=== PATIENT | female | born 1995 | race Caucasian/White ===

== ENCOUNTER 2024-12-24 11:27 | Outpatient (CLI) | payer BC, SELFPAY ==
--- NOTE | 2024-12-24 11:30 | CRLHL7_ITS ---
For Patients: As a result of the Century Cures Act, medical imaging exams and procedure reports are released immediately into your electronic medical record. You may view this report before your referring provider. If you have questions, please contact your health care provider. OB ULTRASOUND LESS THAN 14 WEEKS, 12/24/2024 CLINICAL HISTORY: Dating and viability. COMPARISON: None. TECHNIQUE: Grayscale and color Doppler ultrasound of the uterus and ovaries from a transvaginal approach. Transvaginal ultrasound of the pelvis was performed to better evaluate the genitourinary organs such as the ovaries and/or endometrium. FINDINGS: Imaging: TV. LMP: 10/15/2024. JONI by LMP: 08/01/2025. GA: 8 weeks 4 days. FHR: 178 bpm. GEST SAC: Appears WNL. YOLK SAC: Appears WNL. RIGHT OV: 4.4 x 3.4 x 4.1 cm. CL. LEFT OV: Not visualized. IMPRESSION: 1. Single living intrauterine measures 9 weeks 1 day with sonographic due date 07/28/2025. 2. Simple right ovarian cyst measures 3.9 x 3.0 x 3.6 cm. 3. Subchorionic hemorrhage measures 3.8 x 2.0 x 3.6 cm. Carlos Quevedo M.D. Diagnostic Radiologist [email or web address] Transcribed: 12:39 pm DW/Dictated by: Carlos Quevedo MD @ 12/24/2024 12:19:00 PM (Electronically Signed)
== END 2024-12-24 11:28 | disposition home or self-care (01) ==
LOC: US 11:29
PROVIDERS: PCP Family Medicine; Visit Provider Registered Nurse
DX: O20.9 Hemorrhage in early pregnancy, unspecified (principal); O34.81 Maternal care for other abnormalities of pelvic organs, first trimester; N83.291 Other ovarian cyst, right side; Z3A.09 9 weeks gestation of pregnancy
CPT/HCPCS: 76817; 82565; 82570; 83021; 84156; 84450; 84460; 84520; 86703; 86706; 86803; 86850; 86900; 86901; 87086; 87340; 87491; 87591

== ENCOUNTER 2024-12-24 12:56 | Outpatient (CLI) | payer BC, SELFPAY ==
[2024-12-24 20:50] LABS: Chlamydia DNA Amplified* NOT DETECTED (No Detected); GC DNA Amplified* NOT DETECTED (No Detected)
== END 2024-12-24 12:57 | disposition home or self-care (01) ==
PROVIDERS: PCP Family Medicine; Visit Provider Registered Nurse
DX: Z34.91 Encounter for supervision of normal pregnancy, unspecified, first trimester (principal)
CPT/HCPCS: 82565; 82570; 83020; 83021; 84156; 84450; 84460; 84520; 85660; 86592; 86703; 86704; 86706; 86762; 86787; 86803; 86850; 86900; 86901; 87086; 87340; 87491; 87591

== ENCOUNTER 2025-01-08 11:53 | Outpatient (CLI) | payer BC, SELFPAY | END 2025-01-08 11:54 | disposition home or self-care (01) | LOC: NFLDREF 11:55 | PROVIDERS: PCP Family Medicine; Visit Provider Advanced Practice Midwife | DX: O20.9 Hemorrhage in early pregnancy, unspecified (principal); O26.891 Other specified pregnancy related conditions, first trimester; Z67.91 Unspecified blood type, Rh negative | CPT/HCPCS: J2791 ==

== ENCOUNTER 2025-01-20 08:33 | Outpatient (CLI) | payer BC, SELFPAY | END 2025-01-20 08:34 | disposition home or self-care (01) | LOC: NFLDREF 01-22 14:46 | PROVIDERS: PCP Family Medicine; Referring Provider Family Medicine; Visit Provider Registered Nurse | DX: Z87.59 Personal history of other complications of pregnancy, childbirth and the puerperium (principal) | CPT/HCPCS: 82570; 84156 ==

== ENCOUNTER 2025-03-17 13:08 | Outpatient (CLI) | payer BC, SELFPAY ==
--- NOTE | 2025-03-17 13:00 | CRLHL7_ITS ---
For Patients: As a result of the 21st Century Cures Act, medical imaging exams and procedure reports are released immediately into your electronic medical record. You may view this report before your referring provider. If you have questions, please contact your health care provider. LMP: 10/25/2024. JONI by LMP: 08/01/2025. GA: 20w, 3d. INDICATION: Supervision of normal . anatomy scan. CERVIX: Visualized. Measurement: 4.8. POSITIONING: Vertex. AMNIOTIC FLUID: 5.2 cm SDP. PLACENTA: Technique: Transabdominal. PLACENTA POSITION: Left wall, posterior. Placenta tip to internal os: 10.9 cm. UMBILICAL CORD: 3-vessel cord. Placental insertion: Eccentric. BIOMETRY: BPD: 5.1 cm. 21w, 3d, 84 percent. HC: 19.3 cm. 21w, 4d, 87 percent. AC: 16.7 cm. 21w, 5d, 84 percent. FL: 3.6 cm. 21w, 2d, 73 percent. FL/AC ratio: 21.40 percent. HC/AC ratio: 1.115. EFW: 432.59 g. Weight: 0 lbs, 15 oz. age by this US: 21w, 4d. JONI by this US: 07/24/2025. Percentile by JONI: 95 percent. SURVEY: Observed Structures Cerebellum: Yes. 2.2 cm; 21w 6d. Cisterna Magna: Yes. 6.0 mm. Nuchal Fold: Yes. 5.4 mm. Lateral Ventricle: Yes. 5.5 mm. CSP: Yes. Midline Falx: Yes. Choroid Plexus: Yes. Spine: Yes. Stomach: Yes. Abd Cord Insertion: Yes. Urinary Bladder: Yes. Kidneys: Yes. Diaphragm: Yes. Nose/lips: Yes. Orbital view: Yes. Profile: Yes. Upper Extremities: Yes. Lower Extremities: Yes. Hands: Yes. Feet: Yes. Four-Chamber Heart: Yes. LVOT: Yes. RVOT: Yes. 3VV: Yes. 3VTV: Yes. IMPRESSION: 1. Normal anatomic survey. 2. Sonographic gestational age 21 weeks 4 days and sonographic due date 07/24/2025. Sonographic age is 8 days ahead of the clinical age. 3. Estimated weight 95th percentile. Abdominal circumference 84th percentile. 4. Hypoechoic placental kamara is present adjacent to the placental cord insertion which measures 5.1 x 1.6 x 5.1 cm. MFM consult should be considered for this finding. Carlos Quevedo M.D. Diagnostic Radiologist [email or web address] bM/Dictated by: Carlos Quevedo MD @ 03/17/2025 3:15:00 PM (Electronically Signed)
== END 2025-03-17 13:09 | disposition home or self-care (01) ==
LOC: US 13:09
PROVIDERS: PCP Family Medicine; Visit Provider Advanced Practice Midwife
DX: O36.62X0 Maternal care for excessive fetal growth, second trimester, not applicable or unspecified (principal); Z3A.20 20 weeks gestation of pregnancy
CPT/HCPCS: 76805